=== PATIENT | male | born 1945 | race Caucasian/White ===

== ENCOUNTER → 2017-07-29 | Outpatient (CLI) | payer MEDICARE, BC ==
--- NOTE | 2017-07-29 12:52 | PCVCIMAG ---
APPROVED REPORT Indications Bruit Doppler Spectral Velocity Analysis PSV / EDVPSV / EDV ECA (R) 144 / 19 cm/sECA (L) 127 / 16 cm/s dICA (R) 67 / 20 cm/sdICA (L) 65 / 19 cm/s Gino (R) 94 / 20 cm/smICA (L) 92 / 19 cm/s pICA (R) 85 / 23 cm/spICA (L) 74 / 19 cm/s Bulb (R) 82 / 14 cm/sBulb (L) 76 / 15 cm/s dCCA (R) 77 / 13 cm/sdCCA (L) 84 / 15 cm/s mCCA (R) 95 / 16 cm/smCCA (L) 91 / 15 cm/s Vert (R) 44 / 0 cm/sVert (L) 62 / 14 cm/s ICA/CCA 0.99ICA/CCA 1.01 Basic Measurements Blood Pressure: Pulses: Right Left RightLeft Brachial(Sitting) 100/78zcLl094/56mmHgTemporal Real Time B-Mode Imaging Vert. (R)AntegradeVert. (L)Antegrade Findings The right carotid bulb has moderate calcified plaque. The right proximal internal carotid artery shows <40% stenosis. The right common carotid artery shows no significant stenosis. The right external carotid artery shows <50% stenosis. The left carotid bulb has moderate calcified plaque. The left proximal internal carotid artery shows <40% stenosis. The left common carotid artery shows no significant stenosis. The left external carotid artery shows <50% stenosis. Conclusion 1. Right internal carotid artery stenosis (<40%) 2. Left internal carotid artery stenosis (<40%) 3. Antegrade vertebral flow
--- NOTE | 2017-07-29 17:34 | PCVCIMAG ---
APPROVED REPORT Exam: Stress Echocardiogram Indication: CABG, HYPERTENSION, SOA, CHEST PAIN, HYPERLIPIDEMIA Patient Location: Echo lab Stress Nurse: Elham Kruger RN Status: routine Ht: 5 ft 9 in HR: 82 bpm Rhythm: NSR Procedure The patient underwent an Exercise Stress Test using the Marco Protocol. Blood pressure, heart rate, and EKG were monitored. An Echocardiogram was performed by park maintenance technician in four stages in quad fashion. At peak stress, four selected images were obtained and placed side by side with resting images for comparison. Stress Test Details Stress Test: Exercise stress testing was performed using a Marco protocol. HR Resting HR: 82 bpmMax Heart Rate (APMHR): 147 bpm Max HR Achieved: 147 bpmTarget HR (85% APMHR): 124 bpm % of APMHR: 100 HR response to stress: Normal HR response to stress BP Resting BP: 110/70 mmHg Max BP: 166/70 mmHg ECG Resting ECG: Sinus Rhythm Stress ECG: Sinus Rhythm ST Change: ST Depression Recovery ECG: ST depression Clinical Reason for Termination: Maximal effort Stress Symptoms: Leg Fatigue Exercise duration: 9 min 05 sec Highest Stage Achieved: Stage 4: 4.2 mph at 16% grade. Exercise capacity: 10.30 METs Overall Exercise Capacity for Age: Good Pre-Stress Echo The resting Echocardiogram showed normal left ventricular contractility with an estimated Ejection Fraction of about 50%. Inferior wall akinesis. Distal septum and apical hypokinesis. Post-Stress Echo The stress Echocardiogram showed normal left ventricular contractility with an estimated Ejection Fraction of about 50%. Inferior wall akinesis. Distal septum and apical hypokinesis. Mild dilatation of the left ventricle. Conclusion Clinical Response: Non-ischemic Exercise Capacity: Average Stress ECG Response: Ischemic Stress Echo Images: Ischemic Other Information Study Quality: Fair
== END | disposition home or self-care (01) ==
LOC: PCVCIMAG 10:47
PROVIDERS: ATTEND Internal Medicine Cardiovascular Disease
DX: I25.810 Atherosclerosis of coronary artery bypass graft(s) without angina pectoris (principal); R09.89 Other specified symptoms and signs involving the circulatory and respiratory systems; E11.9 Type 2 diabetes mellitus without complications; E78.00 Pure hypercholesterolemia, unspecified; I10 Essential (primary) hypertension; R07.89 Other chest pain; R94.39 Abnormal result of other cardiovascular function study; I65.23 Occlusion and stenosis of bilateral carotid arteries; Z79.4 Long term (current) use of insulin; Z79.82 Long term (current) use of aspirin; Z79.899 Other long term (current) drug therapy
CPT/HCPCS: 93005; 93325; 93351; 93880; G0463

== ENCOUNTER → 2017-07-30 | Outpatient (CLI) | payer MEDICARE, BC ==
[~2017-07-30] MED LIST: CLOPIDOGREL BISULFATE 75 MG TABLET ONE; DIAZEPAM 10 MG TABLET. ONE; IOHEXOL 350 MG/ML 100 ML VIAL. ONE; IOHEXOL 350 MG/ML 50 ML VIAL. ONE; IV NORMAL SALINE 1000ML BAG 1,000 ML ONE; LIDOCAINE 1% Multi-Dose 20 ML VIAL. ONE; MIDAZOLAM HCL/PF 2 MG/2 ML VIAL. ONE; fentaNYL PF VIAL 100 MCG/2 ML VIAL ONE
--- NOTE | 2017-07-31 18:45 | PCVCINTER ---
APPROVED REPORT Patient Details Patient Status: Out-Patient Room #: 2 The patient is a 71 year-old Male Event Personnel Wes Calles MD, Mani Edmondson RN, Jeffrey Zhao RT(R)() Risk Factors Arterial HypertensionDysplipidemia (Type: 1), Cerebrovascular DiseaseFamily History, Hypercholesterolemia, Diabetes (Control: Insulin)Last Creatanine 1.3Tobacco History (Never) Previous Procedures/Diagnoses Previous CABGPrevious PCI, Previous Femoral Procedure, Previous ME, CAD, Liver disease, Cerebrovascular disease, Previous ME, Hypertension, Diabetes Procedure Narrative The patient was brought electively to the Cardiac Catheterization Laboratory and was prepped and draped in a sterile manner. The right femoral was infiltrated with 1% Lidocaine subcutaneous anesthesia. A 6fr sheath was inserted into the right femoral artery. Coronary angiography was performed using coronary diagnostic catheters. The right coronary system was accessed and visualized with a JR4 catheter. The left coronary system was accessed and visualized with a JL4 catheter. The left ventricle was accessed and visualized with a Pigtail catheter. Left ventriculogram was performed in FAUST projection. An aortogram of the abdominal aorta was performed. Pre-demployment femoral angiogram was performed . Closure device was deployed with a 6 Fr Mynx. Hemostasis was obtained with manual pressure following sheath removal without any complications. The patient tolerated the procedure well and there were no complications associated with the procedure. There was no hematoma. Hemodynamics The aortic pressure is 117/53 mmHg with a mean of 77 mmHg. The left ventricular pressure is 129/8 mmHg with a mean of 21 mmHg. Conclusion #1 normal left ventricular size and systolic function EF 60% no wall motion abnormality #2 abdominal aorta is intact no aneurysm single bilateral renal arteries and iliac system widely patent #3 left main giving rise to an LAD and circumflex which essentially occludes faint collateral filling from a septal to a distal PDA #4 BENTLEY to LAD is intact there is diffuse disease in the mid-distal LAD after the diagonal branch #5 occluded SVG to presumably went to diagonal branch #6 SVG to a moderately large OM has mid graft subtotal occlusion 98% with preserved flow it appears her's previously placed stent within this graft this lesion is distal to the stent #7 total occlusion of [place] right coronary artery #8 SVG to PDA is occluded Recommendations and plan would recommend intervention to SVG to OM this will follow later date. Inferior wall remains viable through collateralization from the remainder of the [place] circumflex and septal system collaterally filling the PDA No lifting for 48 hours to line tub Jacuzzi or Lee for a week. Holding metformin until interventional procedure which is scheduled 48 hours
== END ==
LOC: PCVCINTER 11:01
PROVIDERS: ATTEND Internal Medicine Cardiovascular Disease
DX: I25.810 Atherosclerosis of coronary artery bypass graft(s) without angina pectoris (principal); E11.9 Type 2 diabetes mellitus without complications; I10 Essential (primary) hypertension; E78.00 Pure hypercholesterolemia, unspecified; I25.2 Old myocardial infarction; Z79.4 Long term (current) use of insulin
CPT/HCPCS: 75625; 93459; C1751; C1760; C1769; C1894; J1644; J2250; J3010; J7030; Q9967

== ENCOUNTER → 2017-11-05 | Outpatient (CLI) | payer MEDICARE, BC | END | disposition home or self-care (01) | LOC: PCVCCLINIC 13:43 | DX: I25.810 Atherosclerosis of coronary artery bypass graft(s) without angina pectoris (principal); I10 Essential (primary) hypertension; R09.89 Other specified symptoms and signs involving the circulatory and respiratory systems; I63.9 Cerebral infarction, unspecified; E11.9 Type 2 diabetes mellitus without complications; R94.31 Abnormal electrocardiogram [ECG] [EKG]; Z95.1 Presence of aortocoronary bypass graft; Z87.891 Personal history of nicotine dependence; Z79.82 Long term (current) use of aspirin; Z79.899 Other long term (current) drug therapy | CPT/HCPCS: 36415; 93005; G0463 ==

== ENCOUNTER → 2018-03-11 | Outpatient (CLI) | payer MEDICARE, BC | END | disposition home or self-care (01) | LOC: PCVCIMAG 14:38 | DX: I25.10 Atherosclerotic heart disease of native coronary artery without angina pectoris (principal); I10 Essential (primary) hypertension; I63.9 Cerebral infarction, unspecified; E11.9 Type 2 diabetes mellitus without complications; Z95.1 Presence of aortocoronary bypass graft | CPT/HCPCS: 93325; 93351 ==

== ENCOUNTER → 2018-10-12 | Outpatient (CLI) | payer MEDICARE, BC ==
--- NOTE | 2018-10-12 10:57 | PCVCIMAG ---
APPROVED REPORT Indications Bruit Risk Factors Hypertension: TIA/CVA History Hyperlipidemia Diabetes, CAD Doppler Spectral Velocity Analysis PSV / EDVPSV / EDV ECA (R) 156 / 14 cm/sECA (L) 124 / 13 cm/s dICA (R) 71 / 16 cm/sdICA (L) 82 / 19 cm/s Gino (R) 92 / 21 cm/smICA (L) 105 / 19 cm/s pICA (R) 95 / 24 cm/spICA (L) 89 / 18 cm/s Bulb (R) 78 / 13 cm/sBulb (L) 94 / 14 cm/s dCCA (R) 87 / 13 cm/sdCCA (L) 103 / 14 cm/s mCCA (R) 96 / 13 cm/smCCA (L) 115 / 14 cm/s Vert (R) 47 / 0 cm/sVert (L) 60 / 14 cm/s ICA/CCA 1.02 ICA/CCA 0.99 Basic Measurements Blood Pressure: Pulses: Right Left RightLeft Brachial(Sitting) 102/01eaRr783/58mmHgTemporal Real Time B-Mode Imaging Vert. (R)AntegradeVert. (L)Antegrade Findings The right carotid bulb has moderate heterogeneous plaque. The right proximal internal carotid artery shows <40% stenosis. The right common carotid artery shows no significant stenosis. The right external carotid artery shows no significant stenosis. The left carotid bulb has moderate heterogeneous plaque. The left proximal internal carotid artery shows <40% stenosis. The left common carotid artery shows no significant stenosis. The left external carotid artery shows <50% stenosis. Conclusion 1. Right internal carotid artery stenosis (<40%) 2. Left internal carotid artery stenosis (<40%) 3. Antegrade vertebral flow
== END | disposition home or self-care (01) ==
LOC: PCVCIMAG 13:00
PROVIDERS: ATTEND Internal Medicine Cardiovascular Disease
DX: I65.23 Occlusion and stenosis of bilateral carotid arteries (principal); I25.10 Atherosclerotic heart disease of native coronary artery without angina pectoris; I10 Essential (primary) hypertension; E78.00 Pure hypercholesterolemia, unspecified; R09.89 Other specified symptoms and signs involving the circulatory and respiratory systems; E11.9 Type 2 diabetes mellitus without complications; Z79.4 Long term (current) use of insulin; Z95.1 Presence of aortocoronary bypass graft; Z79.82 Long term (current) use of aspirin; Z87.891 Personal history of nicotine dependence
CPT/HCPCS: 36415; 80061; 93005; 93880; G0463

== ENCOUNTER → 2019-04-21 | Outpatient (CLI) | payer MEDICARE, BC ==
[~2019-04-21] MED LIST changes: -CLOPIDOGREL BISULFATE 75 MG TABLET ONE; -DIAZEPAM 10 MG TABLET. ONE; -IOHEXOL 350 MG/ML 100 ML VIAL. ONE; -IOHEXOL 350 MG/ML 50 ML VIAL. ONE; -IV NORMAL SALINE 1000ML BAG 1,000 ML ONE; -LIDOCAINE 1% Multi-Dose 20 ML VIAL. ONE; -MIDAZOLAM HCL/PF 2 MG/2 ML VIAL. ONE; +REGADENOSON 0.4 MG/5 ML DISP.SYRIN. IV ONE; -fentaNYL PF VIAL 100 MCG/2 ML VIAL ONE
--- NOTE | 2019-04-22 17:18 | PCVCIMAG ---
APPROVED REPORT Imaging Protocol: Rest Tc-99m/Stress Tc-99m 1 day Study performed: 04/21/2019 09:08:19 Indication: Chest pain, CAD Patient Location: Out-Patient Stress Nurse: Elham Kruger RN, Gaby Reis RN [place] Tech:Mai [facility] Ht: 5 ft 9 in Wt: 170 lbs BSA: 1.93 m2 HR: 66 bpm BP: 123/59 mmHg BMI: 25.1 Rhythm: Sinus Rhythm, 1st degree AV block Medical History Medical History: Hyperlipidemia, Diabetic � Insulin, Former Smoker, CAD Medications: ASA, Plavix, Zetia, Lasix, Hydroxyzine, Insulin, Lisinopril, Omeprozole, Simvastatin, Aldactone Allergies: Amoxicillin Cardiac Risk Factors: Age Previous Cardiac Procedures: CABG Pretest Chest Pain Characteristics: No chest pain Exercise History: Sedentary Physical Disabilities: Weakness Resting Data Rest SPECT myocardial perfusion imaging was performed in supine position 45 minutes following the intravenous injection of 9.9 mCi of Tc-99m Sestamibi. Time of rest injection: 0850 Date: 04/21/2019 Administration Route: IV Administration Site: Right AC Pharmacologic Stress Pharmacologic stress test was performed by injecting Regadenoson 0.4 mg IV push over 10-15 seconds immediately followed by the intravenous injection of 32.4 mCi of Tc-99m Sestamibi. Time of stress injection: 1010 Date: 04/21/2019 Administration Route: IV Administration Site: Right AC Gated Stress SPECT was performed 45 minutes after stress injection. The images were gated to evaluate regional wall motion and calculate left ventricular ejection fraction. Stress Test Details Stress Test: Pharmacologic stress testing performed using 0.4 mg of regadenoson per 5 mL given IV over 10 seconds. Reason for pharmacologic stress test: physical limitation. HRMax Heart Rate (APMHR): 145 bpm Resting HR: 66 bpmTarget HR (85% APMHR): 123 bpm Max HR Achieved: 77 bpm % of APMHR: 53 Recovery HR: 75 bpm BP Resting BP: 123/59 mmHg Max BP: 91/47 mmHg Recovery BP: 117/53 mmHg ECG Resting ECG: Sinus Rhythm, 1st degree AV block Stress ECG: Sinus Rhythm, 1st degree AV block Arrhythmia: None Recovery ECG: Sinus Rhythm, 1st degree AV block Clinical Reason for Termination: Completed protocol Stress Symptoms: Lightheaded Exercise duration: min 55 sec Symptoms resolved with caffeine. Stress ECG Conclusion ECG: Non-ischemic Study Data Post stress, the left ventricular ejection was 74%.. SSS: 0 SRS: 0 SDS: 0 TID = 1.21. Perfusion No evidence of stress induced ischemia or prior myocardial infarction. Wall Motion Normal left ventricular size and function with no regional wall motion abnormalities. Nuclear Conclusion No evidence of stress induced ischemia or prior myocardial infarction. Normal left ventricular size and function with no regional wall motion abnormalities. Post stress, the left ventricular ejection was 74%. No prior study available for comparison. Interpreted by: Leonard Venegas MD Electronically Approved: 04/21/2019 15:26:34 <Conclusion> ECG: Non-ischemic
== END | disposition home or self-care (01) ==
LOC: PCVCIMAG 08:39
PROVIDERS: ATTEND Internal Medicine Cardiovascular Disease
DX: I25.810 Atherosclerosis of coronary artery bypass graft(s) without angina pectoris (principal); R07.9 Chest pain, unspecified; E11.9 Type 2 diabetes mellitus without complications; R06.02 Shortness of breath; E78.5 Hyperlipidemia, unspecified; Z88.8 Allergy status to other drugs, medicaments and biological substances; Z87.891 Personal history of nicotine dependence
CPT/HCPCS: 78452; 93017; A9500; J2785